=== PATIENT | male | born 1985 | race Caucasian/White ===

== ENCOUNTER 2017-04-28 02:04 | Emergency (ER) | payer OTHER ==
--- NOTE | 2017-04-28 07:57 | RAD ---
INDICATION: Altered mental status. COMPARISON: There are no prior studies available for comparison. TECHNIQUE: Contiguous axial sections of the brain were obtained from the skull base to the vertex without contrast. FINDINGS: The ventricles, cisterns and sulci are within normal limits. No significant focal abnormality or mass effect is seen. There is no evidence for hemorrhage. There is a 1 cm nodular density partially visualized within the left maxillary sinus most consistent with a mucous retention cyst or polyp. The visualized portion of the paranasal sinuses and mastoid air cells otherwise appear clear. IMPRESSION: NO EVIDENCE FOR ACUTE INTRACRANIAL ABNORMALITY.
--- NOTE | 2017-04-28 08:44 | ED ---
Marixa Mccall Julia, scribed for Ericka Brewster MD on 04/28/17 at 0739 . Progress - Progress Note Progress Note: Patient is signed out from Dr. Mujica at shift change, pending etoh metabolism, Brain CT, and disposition. A brain CT reveals, per radiologist, NO EVIDENCE FOR ACUTE INTRACRANIAL ABNORMALITY. ED Physician has reviewed this report. At 08:45, patient is awake and alert. He states he does not recall last nights events. I reviewed EMS report with him. [place] - doesn't remember "that much" Pt without any complaints. He is cooperative and has no complaints. I reviewed CT scan results and urine drug screen with patient. Patient will be given breakfast by PO. then ambulate and will call for a ride home. Pt comfortable and in agreement with plan Discharge - Sign-Out/Discharge Documenting (check all that apply): Receiving Sign-Out Receiving patient FROM: Werner Mujica - Discharge Plan Condition: Stable Disposition: HOME Patient Education Materials: Alcohol Intoxication (ED) Referrals: [facility] - Mahesh MEHTA [Primary Care Provider] - Additional Instructions: - stay well hydrated. Drink plenty of non-caffinated, non-alcoholic beverages - It is recommended you eat non-spicy, non-acidic food today - Do not drive, operate machinery until you are feeling completely recovered contact your doctor to schedule a follow-up appointment. - Billing Disposition and Condition Condition: STABLE Disposition: HOME The documentation as recorded by the Marixa hernandez Julia accurately reflects the service I personally performed and the decisions made by me, Ericka Brewster MD.
[2017-04-28] MEDS ORDERED: LORazepam INJ* 2 MG/ML 1 ML VIAL IV PUSH ONE (08:53)
[2017-04-28 09:40] VITALS: BP 99/57
--- NOTE | 2017-04-28 17:41 | ED ---
Yovany Mccall Stephanie, scribed for Werner Mujica MD on 04/28/17 at 0250 . Substance Abuse/Use - HPI Summary HPI Summary: The pt is a 31 y/o M BIBA to the ED with c/o ETOH intoxication at 02:20. The pt denies fall. Pt found in the bushes intoxicated by bystanders. Pt reports excessive alcohol use today. pt denies any drug use. - History Of Current Complaint Stated Complaint: ETOH Time Seen by Provider: 04/28/17 02:14 Hx Obtained From: Patient Onset/Duration of Drug/ETOH Abuse: Hours Ingestion History: Type/Name Of Drug - ETOH Overdose Characteristics: Oral Timing Of Abuse: Binge Use Character: Stuporous Aggravating Factor(s): Nothing Alleviating Factor(s): Nothing PMH/Surg Hx/FS Hx/Imm Hx Sensory History: Denies: Hx Legally Blind EENT History: Denies: Hx Deafness - Surgical History Surgery Procedure, Year, and Place: UNABLE TO OBTAIN - Family History Known Family History: Positive: Unknown - Reviewed and noncontributory - Social History Occupation: Employed Part-time Lives: Dormitory/Roommates Review of Systems Negative: Fever All Other Systems Reviewed And Are Negative: Yes Physical Exam - Summary Physical Exam Summary: Appearance: Well-appearing, no distress, Well-nourished; smells of alcohol Skin: Warm, color reflects adequate perfusion, superficial abrasions bilateral neck, Head: Normal Head/Face inspection Eyes: Conjunctiva clear ENT: Normal inspection, breath smells of ETOH Neck: Supple, no nodes, no JVD. Respiratory: Lungs clear, Normal breath sounds, no respiratory distress Cardio: RRR, No murmur, pulses normal, brisk capillary refill Abdomen: soft, nontender, no guarding, no rebound Bowel sounds: present Musculoskeletal: Strength Intact/ ROM intact. No calf tenderness. No edema. Neuro: Alert, muscle tone normal, facial symmetry, speech normal, sensory/motor intact Psychological: Normal Triage Information Reviewed: Yes Vital Signs On Initial Exam: Initial Vitals Pulse BP Pulse Ox 101 131/70 100 04/28/17 02:30 04/28/17 02:30 04/28/17 02:30 Vital Signs Reviewed: Yes Diagnostics - Vital Signs Vital Signs Temp Pulse Resp BP Pulse Ox 04/28/17 04:58 83 14 98 04/28/17 04:30 81 15 110/62 98 04/28/17 04:00 78 14 104/60 98 04/28/17 03:30 100 18 101/62 95 04/28/17 03:00 35.8 C 98 15 122/81 95 04/28/17 02:30 101 131/70 100 - Laboratory Lab Statement: Any lab studies that have been ordered have been reviewed, and results considered in the medical decision making process. Re-Evaluation - Re-Evaluation First Eval Re-Evaluation Time: 06:06 Change: Worse Comment: Pt now more combative and confused. pt with repetitive answers to questions. pt with no focal deficits. Will obtain CT head and continue to monitor. Second Eval Re-Evaluation Time: 07:24 Comment: Pt now more calm resting in bed. Will continue to monitor for improvement in symptoms. Course/Dx - Course Assessment/Plan: Pt not clinically sober at this time. Plan to continue to monitor. Will sign pt out to Dr. Brewster for further evaluation. - Diagnoses Differential Diagnosis/HQI/PQRI: Positive: Alcohol Abuse, Alcohol Withdrawal, Depression, Drug Abuse, Drug Withdrawal, Suicidal Risk Provider Diagnoses: Alcohol intoxication Discharge - Sign-Out/Discharge Documenting (check all that apply): Sign-Out Patient Signing out patient TO: Ericka Brewster - Pending ETOH metabolism and CT brain. - Discharge Plan Condition: Stable Disposition: HOME Patient Education Materials: Alcohol Intoxication (ED) Referrals: [facility] - Mahesh MEHTA [Primary Care Provider] - Additional Instructions: - stay well hydrated. Drink plenty of non-caffinated, non-alcoholic beverages - It is recommended you eat non-spicy, non-acidic food today - Do not drive, operate machinery until you are feeling completely recovered contact your doctor to schedule a follow-up appointment. - Billing Disposition and Condition Condition: STABLE Disposition: HOME The documentation as recorded by the Yovany hernandez Stephanie accurately reflects the service I personally performed and the decisions made by me, Werner Mujica MD.
== END 2017-04-28 09:41 | disposition home or self-care (01) ==
LOC: ED 02:04
DX: F10.129 Alcohol abuse with intoxication, unspecified (principal); R41.82 Altered mental status, unspecified
CPT/HCPCS: 36415; 70450; 80307; 99283